=== PATIENT | female | born 1950 | race Caucasian/White ===

== ENCOUNTER → 2020-04-27 11:53 | Outpatient (CLI) | payer MEDICARE, SELFPAY ==
--- NOTE | ~2020-04-27 | XR_ITS ---
EXAMINATION: XR hip BI wo pelvis DATE: 04/27/2020 12:22 INDICATION: Bilateral hip pain. TECHNIQUE: 2 views of right hip and 2 views of left hip were obtained. COMPARISON: Left hip radiographs 01/23/2007 FINDINGS: Bone alignment is normal. No fracture. There is severe right hip osteoarthritis and moderat e left hip osteoarthritis. Osteitis pubis is noted. IMPRESSION: 1. Severe right hip osteoarthritis and moderate left hip osteoarthritis. Reviewed, dictated and finalized at location B. TIZER OPERATOR
== END ==
PROVIDERS: Visit Provider General Practice
DX: M16.0 Bilateral primary osteoarthritis of hip (principal)
CPT/HCPCS: 73521

== ENCOUNTER 2020-05-18 09:58 | Outpatient (CLI) | payer MEDICARE, SELFPAY ==
--- NOTE | ~2020-05-18 | CT_ITS ---
EXAMINATION: CT chest abdomen pelvis wo con DATE: 05/18/2020 10:34 INDICATION: Left breast cancer TECHNIQUE: Computed tomography (CT) of the chest, abdomen, and pelvis was performed without intraveno us contrast. Automated exposure control and iterative reconstruction technique were employed. The dos e-length product was 1281.33 mGy-cm. COMPARISON: PET CT dated 06/05/[address] dated FINDINGS: CHEST CT: Postoperative change of bilateral mastectomies and axillary lymph node dissections. Radiation fibrosi s along the periphery of the anterior left upper lobe. 9 x 3 mm nodule in the right middle lobe which is unchanged since 2007 and almost certainly benign. 3 mm nodule in the right middle lobe and 2 mm n odule in the right lower lobe which are also unchanged. Calcified right middle lobe nodule along with calcified right hilar and mediastinal lymph nodes consistent with old granulomatous disease. No pneu monia, pulmonary edema, pleural effusion or pneumothorax. Mild cardiomegaly. Atherosclerotic coronary artery calcific calcification. Aortic valve calcification. Vascular aorta is normal in caliber. No p athologically enlarged thoracic lymphadenopathy. There are bridging osteophytes at multiple levels in the spine, consistent with diffuse idiopathic skeletal hyperostosis (DISH). ABDOMEN/PELVIS CT: Small amount of pneumobilia likely related to prior cholecystectomy with surgical clips at the gallbl adder fossa. Couple tiny splenic calcific calcification is consistent with old granulomatous disease. Fatty atrophy of the pancreas. Bilateral adrenal glands are normal. Mild right and mild to moderate left renal cortical atrophy. 1.5 cm low-attenuation right renal cyst. Prominent diverticulosis along the descending and sigmoid colon without adjacent inflammatory change to suggest diverticulitis. Smal l bowel and appendix are normal. Small fat-containing umbilical hernia. The uterus is not identified and has likely been surgically resected. Bladder and bilateral adnexa are unremarkable. No free intra peritoneal gas or fluid. No pathologically enlarged abdominal or pelvic lymphadenopathy. There is viry cified atherosclerosis of the aorta and many of the other arteries. Severe bilateral hip osteoarthrit is. Moderate to severe lower lumbar spondylosis. IMPRESSION: 1. Postoperative changes of bilateral mastectomies and bilateral axillary lymph node dissections for reported left breast cancer. No evident metastatic disease in the chest abdomen or pelvis. 2. Diverticulosis. Reviewed, dictated and finalized at location A. NOLOGY SPECIALIST IMPRESSION: 1. Postoperative changes of bilateral mastectomies and bilateral axillary lymph node dissections for reported left breast cancer. No evident metastatic diseas e in the chest abdomen or pelvis. 2. Diverticulosis.
[2020-05-18 10:22] LABS: Estimated Glomerular Filt Rate 26
[2020-05-18 11:20] LABS: Basophils Percent Auto 0.6 % (0.2-1.2); Eosinophils Absolute Auto 0.5 K/mm3 (0-0.3); Eosinophils Percent Auto 8.5 % (0-4.4); Hematocrit 37.7 % (37.0-47.0); Hemoglobin 12.2 g/dL (12.0-15.0); Immature Granulocyte Absolute 0.02 K/mm3 (0.00-0.031); Immature Granulocyte Percent A 0.3 % (0-0.5); Lymphocytes Absolute Auto 2.14 K/mm3 (0.9-3.2); Lymphocytes Percent Auto 33.5 % (18.3-44.2); Mean Corpuscular HGB Conc 32.4 g/dl (32-36); Mean Corpuscular Hemoglobin 29.8 pg (26-34); Mean Corpuscular Volume 92.2 fl (80-100); Mean Platelet Volume 10.7 fl (7.4-10.4); Monocytes Absolute Auto 0.4 K/mm3 (0.1-0.6); Monocytes Percent Auto 6.6 % (2.6-8.5); Neutrophils Absolute Auto 3.2 K/mm3 (1.3-6.7); Neutrophils Percent Auto 50.5 % (45.5-73.1); Platelet Count Result 205 k/mm3 (150-375); Red Blood Count 4.09 M/mm3 (4.2-5.4); Red Cell Distribution Width 13.8 % (11.5-14.5); White Blood Count 6.4 K/mm3 (4.5-10.0)
[2020-05-18 17:18] LABS: Iron 79 ug/dL (37-170)
[2020-05-18 17:19] LABS: Alanine Aminotransferase 13 U/L (4-35); Albumin Level 3.8 g/dL (3.5-5.1); Alkaline Phosphatase 143 U/L (38-126); Anion Gap 8 mmol/L (8-16); Aspartate Amino Transferase 26 U/L (14-36); Bilirubin,Total 0.8 mg/dL (0.2-1.3); Blood Urea Nitrogen 39 mg/dL (7-17); Calcium 9.7 mg/dL (8.4-10.2); Carbon Dioxide 25 mmol/L (22-30); Chloride 107 mmol/L (98-107); Estimated Glomerular Filt Rate 28; Glucose 121 mg/dL (65-105); Potassium 4.8 mmol/L (3.4-5.0); Sodium 140 mmol/L (137-145)
[2020-05-18 17:29] LABS: Percent Iron Saturation 25 % (20-50)
[2020-05-18 18:37] LABS: Folic Acid > 20.0 ng/mL (2.76->20)
[2020-05-21 13:12] LABS: CA 27.29 76 U/mL (<38)
== END 2020-05-18 09:59 | disposition home or self-care (01) ==
PROVIDERS: PCP General Practice; Visit Provider Internal Medicine Hematology & Oncology
DX: C50.412 Malignant neoplasm of upper-outer quadrant of left female breast (principal); Z17.0 Estrogen receptor positive status [ER+]; D64.89 Other specified anemias; I25.10 Atherosclerotic heart disease of native coronary artery without angina pectoris; R92.8 Other abnormal and inconclusive findings on diagnostic imaging of breast; I70.0 Atherosclerosis of aorta; N28.1 Cyst of kidney, acquired; K42.9 Umbilical hernia without obstruction or gangrene; M16.0 Bilateral primary osteoarthritis of hip; M47.816 Spondylosis without myelopathy or radiculopathy, lumbar region; K57.30 Diverticulosis of large intestine without perforation or abscess without bleeding
CPT/HCPCS: 71250; 74176; 80053; 82607; 82728; 82746; 83540; 83550; 85025; 86300

== ENCOUNTER 2020-08-24 08:25 | Outpatient (CLI) | payer MEDICARE, SELFPAY ==
--- NOTE | ~2020-08-24 | NM_ITS ---
EXAMINATION: NM bone scan whole body EXAM DATE: 08/24/2020 11:47 INDICATION: Malignant neoplasm of upper-outer quad of LT breast . TECHNIQUE: Bone scan was performed after injection of 27.2 mCi technetium 99 HDP and planar whole bod y images were obtained. COMPARISON: Chest CT 05/18/2020 FINDINGS: No focal suspicious regions of increased activity or photopenia identified. Slightly decrea sed activity along the anterior aspects of the left ribs compared to the right, could be radiation re lated findings or attenuation from asymmetric, thicker left pectoralis muscle. Bilateral hip and shou lder activity consistent with osteoarthritis. Expected activity within kidneys, some bladder excretio n. IMPRESSION: No suspicion of osseous metastatic disease. Reviewed, dictated and finalized at location B. FITTER
== END 2020-08-24 08:26 | disposition home or self-care (01) ==
PROVIDERS: PCP General Practice; Visit Provider Internal Medicine Hematology & Oncology
DX: C50.412 Malignant neoplasm of upper-outer quadrant of left female breast (principal); Z17.0 Estrogen receptor positive status [ER+]
CPT/HCPCS: 78306; A9561

== ENCOUNTER 2020-11-15 13:36 | Outpatient (CLI) | payer MEDICARE, SELFPAY ==
[2020-11-15 16:43] LABS: Cholesterol 165 mg/dL (0-200); HDL Direct 78 mg/dL; Triglycerides 102 mg/dL (<150)
[2020-11-15 16:54] LABS: LDL Cholesterol Direct 57 mg/dL
[2020-11-15 17:27] LABS: Vitamin D 25 Hydroxy 58.7 ng/mL
[2020-11-15 17:37] LABS: Hepatitis C Virus Antibody Negative (Negative)
[2020-11-15 18:55] LABS: Free T4 Free Thyroxine Reflex 1.72 ng/dL (0.78-2.19)
[2020-11-15 19:51] LABS: Total Triiodothyronine (T3) 0.98 NG/ML (0.97-1.69)
== END 2020-11-15 13:37 | disposition home or self-care (01) ==
LOC: ANHLAB 13:47
PROVIDERS: PCP General Practice; Visit Provider Nurse Practitioner Family
DX: E03.9 Hypothyroidism, unspecified (principal); E78.00 Pure hypercholesterolemia, unspecified; Z11.59 Encounter for screening for other viral diseases; E55.9 Vitamin D deficiency, unspecified
CPT/HCPCS: 36415; 80061; 82306; 84439; 84443; 84480; 86803

== ENCOUNTER 2021-05-17 09:33 | Outpatient (CLI) | payer MEDICARE, SELFPAY ==
[2021-05-17 10:12] LABS: Basophils Percent Auto 0.3 % (0.2-1.2); Eosinophils Absolute Auto 0.4 K/mm3 (0-0.3); Eosinophils Percent Auto 5.4 % (0-4.4); Hematocrit 40.5 % (37.0-47.0); Hemoglobin 12.7 g/dL (12.0-15.0); Immature Granulocyte Absolute 0.02 K/mm3 (0.00-0.031); Immature Granulocyte Percent A 0.3 % (0-0.5); Lymphocytes Absolute Auto 2.56 K/mm3 (0.9-3.2); Lymphocytes Percent Auto 35.5 % (18.3-44.2); Mean Corpuscular HGB Conc 31.4 g/dl (32-36); Mean Corpuscular Hemoglobin 28.3 pg (26-34); Mean Corpuscular Volume 90.4 fl (80-100); Mean Platelet Volume 10.1 fl (7.4-10.4); Monocytes Absolute Auto 0.4 K/mm3 (0.1-0.6); Monocytes Percent Auto 5.1 % (2.6-8.5); Neutrophils Absolute Auto 3.9 K/mm3 (1.3-6.7); Neutrophils Percent Auto 53.4 % (45.5-73.1); Platelet Count Result 243 k/mm3 (150-375); Red Blood Count 4.48 M/mm3 (4.2-5.4); Red Cell Distribution Width 13.4 % (11.5-14.5); White Blood Count 7.2 K/mm3 (4.5-10.0)
[2021-05-17 12:15] LABS: Alanine Aminotransferase 15 U/L (4-35); Albumin Level 4.4 g/dL (3.5-5.1); Alkaline Phosphatase 167 U/L (38-126); Anion Gap 9 mmol/L (8-16); Aspartate Amino Transferase 26 U/L (14-36); Bilirubin,Total 0.6 mg/dL (0.2-1.3); Blood Urea Nitrogen 39 mg/dL (7-17); Calcium 9.8 mg/dL (8.4-10.2); Carbon Dioxide 22 mmol/L (22-30); Chloride 107 mmol/L (98-107); Estimated Glomerular Filt Rate 28; Glucose 122 mg/dL (65-110); Potassium 4.2 mmol/L (3.4-5.0); Sodium 138 mmol/L (137-145)
[2021-05-17 12:16] LABS: Magnesium 1.7 mg/dL (1.6-2.3); Phosphorus 4.7 mg/dL (2.5-4.5)
[2021-05-17 12:28] LABS: Creatinine Urine 106.6 mg/dL; Total Protein Urine Random 142 mg/dL; Ur Ttl Prot Creatinine Ratio 1.33 mg/mg (0-0.20)
[2021-05-17 15:43] LABS: MALB Creatinine Ratio 612.2 mg/g (0-30); Microalbumin Urine Random 652.6 mg/L (0-16.7)
[2021-05-19 05:28] LABS: CA 15-3 113 U/mL (<32)
[2021-05-31 12:07] LABS: Gliadin AB, IgG <1.0 U/mL (<15.0); Reticulin IgA Negative (Negative); TTG IGA AB <1.0 U/mL (<15.0)
== END 2021-05-17 09:34 | disposition home or self-care (01) ==
LOC: ANHLAB 09:35
PROVIDERS: Internal Medicine Nephrology; Nurse Practitioner Family; Visit Provider Internal Medicine Hematology & Oncology
DX: C50.412 Malignant neoplasm of upper-outer quadrant of left female breast (principal); I12.9 Hypertensive chronic kidney disease with stage 1 through stage 4 chronic kidney disease, or unspecified chronic kidney disease; Z17.0 Estrogen receptor positive status [ER+]; G47.33 Obstructive sleep apnea (adult) (pediatric); E11.22 Type 2 diabetes mellitus with diabetic chronic kidney disease; E03.9 Hypothyroidism, unspecified; E78.00 Pure hypercholesterolemia, unspecified; J45.20 Mild intermittent asthma, uncomplicated; K52.9 Noninfective gastroenteritis and colitis, unspecified; T78.40XA Allergy, unspecified, initial encounter
CPT/HCPCS: 36415; 80053; 82043; 82570; 82607; 83516; 83735; 84100; 84156; 85025; 86003; 86255; 86300

== ENCOUNTER → 2021-05-18 14:48 | Outpatient (CLI) | payer MEDICARE, SELFPAY ==
--- NOTE | ~2021-05-18 | US_ITS ---
EXAMINATION: US soft tissue groin RT DATE: 05/18/2021 15:04 INDICATION: Right groin pain. TECHNIQUE: Multiple grayscale and Doppler ultrasound images of the right inguinal region were obtaine d. COMPARISON: CT abdomen and pelvis 05/18/2020 FINDINGS: There is no abnormal mass or lymphadenopathy in the right inguinal region. No hernia. IMPRESSION: 1. No etiology for the patient's symptoms. Reviewed, dictated and finalized at location A. K TEACHER
== END ==
PROVIDERS: PCP Nurse Practitioner Family; Visit Provider Nurse Practitioner Family
DX: R10.31 Right lower quadrant pain (principal); R29.898 Other symptoms and signs involving the musculoskeletal system; Z98.890 Other specified postprocedural states; Z87.19 Personal history of other diseases of the digestive system
CPT/HCPCS: 76882

== ENCOUNTER 2021-06-05 10:40 | Outpatient (CLI) | payer MEDICARE, SELFPAY ==
--- NOTE | ~2021-06-05 | NM_ITS ---
EXAMINATION: NM bone scan whole body DATE: 06/05/2021 13:28 INDICATION: Malignant neoplasm of the upper outer quadrant of the left breast TECHNIQUE: 22.3 mCi Tc-99m HDP was administered intravenously. Delayed whole-body scintigrams were o btained. COMPARISON: Bone scan dated 08/24/[address] chest, abdomen and pelvis dated 06/05/2021 FINDINGS: Again seen scattered relatively symmetric joint centered and likely degenerative increased uptake at the bilateral shoulders, hands and wrists, knees, feet and ankles. There is asymmetric. No significan t change in asymmetric likely degenerative increased uptake at the right sternoclavicular articulatio n with corresponding severe osteoarthritis evident on the prior CT. There is asymmetric decreased act ivity at the left kidney corresponding to moderate left-sided and mild right-sided renal atrophy on p rior CT. No other suspicious foci of abnormal bone or soft tissue activity to suggest metastatic dise ase. IMPRESSION: 1. Similar pattern of scattered likely degenerative joint centered uptake. No other lesions suspiciou s for metastatic disease. Reviewed, dictated and finalized at location H. STRY PROFESSOR IMPRESSION: 1. Similar pattern of scattered likely degenerative joint centered uptake. No o ther lesions suspicious for metastatic disease.
--- NOTE | ~2021-06-05 | CT_ITS ---
EXAMINATION: CT chest abdomen pelvis wo con DATE: 06/05/2021 11:17 INDICATION: Follow-up abnormal laboratory tests. 18 urination for breast cancer. TECHNIQUE: Computed tomography (CT) of the chest, abdomen, and pelvis was performed without intraveno us contrast. Automated exposure control and iterative reconstruction technique were employed. Exam do se: 1066.14 mGy-cm total exam DLP. COMPARISON: 05/18/2020 CT chest abdomen pelvis FINDINGS: CHEST CT: Status post bilateral mastectomy and axillary node dissection. Calcified pulmonary granulomas are noted in the middle and right lower lobes. No interval new or enla rging pulmonary mass. No pulmonary infiltrate or consolidation. Again noted is postoperative radiation change at the anterior aspect of the left upper lobe. No hilar or mediastinal mass lesion or lymphadenopathy or axillary lymphadenopathy. Aortic calcification but normal caliber of the thoracic aorta. Normal heart size. Coronary artery viry cification. No pericardial or pleural effusion. Prominent degenerative disc disease of the lower cervical spine. Diffuse idiopathic skeletal hyperost osis of the thoracic spine. ABDOMEN/PELVIS CT: Pneumobilia is again noted. Status post cholecystectomy. No hepatic, splenic, pancreatic, adrenal space-occupying mass lesion. 1.5 cm exophytic lower pole right renal cyst. Bilateral renal atrophy, left greater than right. No ur inary tract calculus or hydroureteronephrosis. There is atherosclerotic calcification of the abdominal aorta. Particular prominent calcification is noted at the origins of both renal arteries. No abdominal aortic aneurysm. No intraperitoneal or retr operitoneal or pelvic mass lesion or adenopathy or ascites is evident. There are numerous diverticula of the left colon, particularly in the sigmoid region. No CT evidence of diverticulitis. No bowel obstruction, bowel wall thickening, pneumatosis or intraperitoneal free a ir. The urinary bladder is unremarkable. Status post hysterectomy. Fat-containing umbilical hernia. Multilevel degenerative disease of lumbar spine, especially at L3-4, L4-5 and particularly L5-S1. Prominent bilateral hip osteoarthritis. Diffuse osteopenia. No suspicious osteolytic or osteoblastic lesions are noted. IMPRESSION: Status post bilateral mastectomy and axillary node dissection Status post cholecystectomy Status post hysterectomy Diverticulosis of the left colon; no CT evidence of diverticulitis No significant change since 05/18/2020 Reviewed, dictated and finalized at Location A. Reviewed, dictated and finalized at location B. E STAFF INDUSTRIAL
== END 2021-06-05 10:41 | disposition home or self-care (01) ==
LOC: ANHIMG 10:44
PROVIDERS: PCP Nurse Practitioner Family; Visit Provider Internal Medicine Hematology & Oncology
DX: C50.412 Malignant neoplasm of upper-outer quadrant of left female breast (principal); M48.14 Ankylosing hyperostosis [Forestier], thoracic region; I25.10 Atherosclerotic heart disease of native coronary artery without angina pectoris; Z90.49 Acquired absence of other specified parts of digestive tract; Z90.710 Acquired absence of both cervix and uterus; Z90.13 Acquired absence of bilateral breasts and nipples; K57.30 Diverticulosis of large intestine without perforation or abscess without bleeding; M19.90 Unspecified osteoarthritis, unspecified site; N26.1 Atrophy of kidney (terminal); N28.1 Cyst of kidney, acquired; K42.9 Umbilical hernia without obstruction or gangrene; M16.0 Bilateral primary osteoarthritis of hip; M47.816 Spondylosis without myelopathy or radiculopathy, lumbar region
CPT/HCPCS: 71250; 74176; 78306; A9561

== ENCOUNTER 2021-11-28 12:11 | Outpatient (CLI) | payer MEDICARE, SELFPAY ==
[2021-11-28 13:00] LABS: Basophils Percent Auto 0.3 % (0.2-1.2); Eosinophils Absolute Auto 0.4 K/mm3 (0-0.3); Eosinophils Percent Auto 6.6 % (0-4.4); Hemoglobin 10.7 g/dL (12.0-15.0); Immature Granulocyte Absolute 0.01 K/mm3 (0.00-0.031); Immature Granulocyte Percent A 0.2 % (0-0.5); Lymphocytes Percent Auto 36.1 % (18.3-44.2); Mean Corpuscular HGB Conc 29.7 g/dl (32-36); Mean Corpuscular Hemoglobin 26.9 pg (26-34); Mean Corpuscular Volume 90.5 fl (80-100); Mean Platelet Volume 10.1 fl (7.4-10.4); Monocytes Absolute Auto 0.3 K/mm3 (0.1-0.6); Monocytes Percent Auto 5.1 % (2.6-8.5); Neutrophils Absolute Auto 3.2 K/mm3 (1.3-6.7); Neutrophils Percent Auto 51.7 % (45.5-73.1); Platelet Count Result 267 k/mm3 (150-375); Red Blood Count 3.98 M/mm3 (4.2-5.4); Red Cell Distribution Width 13.5 % (11.5-14.5); White Blood Count 6.1 K/mm3 (4.5-10.0)
[2021-11-28 13:10] LABS: Hypochromasia 1+ (NORMAL); Platelet Estimate Adequate (Adequate)
[2021-11-28 16:18] LABS: Alanine Aminotransferase 13 U/L (6-35); Albumin Level 4.3 g/dL (3.5-5.1); Alkaline Phosphatase 165 U/L (38-126); Anion Gap 9 mmol/L (8-16); Aspartate Amino Transferase 25 U/L (14-36); Bilirubin,Total 0.5 mg/dL (0.2-1.3); Blood Urea Nitrogen 37 mg/dL (7-17); Calcium 9.2 mg/dL (8.4-10.2); Carbon Dioxide 19 mmol/L (22-30); Chloride 110 mmol/L (98-107); Estimated Glomerular Filt Rate 15; Glucose 108 mg/dL (65-110); Potassium 5.5 mmol/L (3.4-5.0); Sodium 138 mmol/L (137-145)
[2021-11-28 16:25] LABS: LDL Cholesterol Direct 48 mg/dL
[2021-11-28 16:32] LABS: Cholesterol 148 mg/dL (0-200); HDL Direct 56 mg/dL; Phosphorus 4.5 mg/dL (2.5-4.5); Triglycerides 135 mg/dL (<150); Vitamin D 25 Hydroxy 82.7 ng/mL
[2021-11-28 16:42] LABS: Appearance Urine Clear (Clear); Bilirubin Urine Negative (Negative); Blood Urine Negative (Negative); Color Urine Yellow (Yellow); Glucose Urine UA Negative (Negative); Ketones Urine Negative (Negative); Leukocyte Esterase Ur Trace LEU/UL (NEGATIVE); Nitrate Urine Negative (Negative); Protein Urine 1+ mg/dL (Negative); Urobilinogen Urine 0.2 mg/dL (<2.0); pH Urine 5.5 (5.0-9.0)
[2021-11-28 16:45] LABS: Carcinoembryonic Antigen 23.5 ng/mL (0.0-3.0)
[2021-11-28 16:46] LABS: Bacteria Urine Trace /hpf; Mucus Urine Rare /lpf; RBC Urine 0-2 /hpf (0-2); Squamous Epithelial Cell Urine Rare /hpf (Few)
[2021-11-28 16:48] LABS: Add Urine Microscopic? YES
[2021-11-28 16:51] LABS: Creatinine Urine 123.1 mg/dL; Total Protein Urine Random 57 mg/dL; Ur Ttl Prot Creatinine Ratio 0.46 mg/mg (0-0.20)
[2021-11-28 17:13] LABS: MALB Creatinine Ratio 246.2 mg/g (0-30); Microalbumin Urine Random 303.1 mg/L (0-16.7)
[2021-11-29 00:06] LABS: Hemoglobin A1C 5.7 % (<5.7)
[2021-12-01 05:33] LABS: CA 15-3 161 U/mL (<32)
== END 2021-11-28 12:12 | disposition home or self-care (01) ==
LOC: ANHLAB 12:14
PROVIDERS: PCP Nurse Practitioner Family; Referring Provider Internal Medicine Nephrology; Visit Provider Internal Medicine Hematology & Oncology
DX: N18.4 Chronic kidney disease, stage 4 (severe) (principal); N04.1 Nephrotic syndrome with focal and segmental glomerular lesions; G47.33 Obstructive sleep apnea (adult) (pediatric); I10 Essential (primary) hypertension; E11.22 Type 2 diabetes mellitus with diabetic chronic kidney disease; E78.00 Pure hypercholesterolemia, unspecified; E03.9 Hypothyroidism, unspecified; J45.20 Mild intermittent asthma, uncomplicated; C50.412 Malignant neoplasm of upper-outer quadrant of left female breast; Z17.0 Estrogen receptor positive status [ER+]
CPT/HCPCS: 36415; 80053; 80061; 81001; 82043; 82306; 82378; 82570; 83036; 83735; 84100; 84156; 85025; 86300

== ENCOUNTER 2021-12-26 10:34 | Outpatient (CLI) | payer MEDICARE, SELFPAY ==
--- NOTE | ~2021-12-26 | PE_ITS ---
EXAMINATION: PET skull to mid thigh DATE: 12/26/2021 12:21 INDICATION: Malignant neoplasm of the upper outer quadrant of the left breast TECHNIQUE: Blood glucose level was 122 mg/dL. 10.938 mCi of 18-fluorodeoxyglucose (18-FDG) was admini stered i.v. Low dose computed tomography (CT) images were acquired from the base of the brain to the proximal thighs for attenuation correction and anatomic localization. Positron emission tomography (P ET) images were acquired in the same distribution beginning 58 minutes after injection. Images includ ing fused PET/CT images were reconstructed in axial, coronal, and sagittal planes. Automated exposure control technique was employed. The dose-length product was 847.95mGy-cm. COMPARISON: CT chest, abdomen and pelvis dated 06/05/2021 FINDINGS: Head/neck: There is symmetric increased activity in the oral cavity, palatine tonsils, parotid glands, submandi bular glands, laryngeal muscles and ocular muscles without CT correlate, likely physiologic. Approxim ately 12 x 9 mm nodule along the deep inferior right thyroid lobe with increased FDG uptake with maxi mal SUV of 5.3. No pathologically enlarged cervical lymphadenopathy or other suspicious foci of incre ased FDG uptake in the visualized head or neck. Chest: Postoperative changes of bilateral mastectomies and surgical clips the left axilla consistent with pr ior axillary lymph node dissection. Calcified right middle lobe nodule and calcified calcified medias tinal and right hilar lymph nodes consistent with old granulomatous disease. No other suspicious pulm onary nodules, pneumonia or other pulmonary infiltrates. No pleural effusion. Heart size is normal. A therosclerotic coronary artery calcification. Aortic valve calcific location. No pericardial effusion . Thoracic aorta is normal in caliber. No pathologically enlarged or FDG avid thoracic lymphadenopath y. No suspicious FDG avid lesions in the thorax. Abdomen/pelvis/proximal thighs: Physiologic renal accumulation and excretion of FDG activity in the kidneys, bladder and along portio ns of ureters. There is asymmetric relative increased activity at the right kidney relative to the le ft with mild right-sided and moderate left-sided renal cortical atrophy. 1.8 cm cyst at the lower cm e of the right kidney. Cholecystectomy clips the gallbladder fossa. Normal degree and heterogenous pa ttern of increased uptake throughout the liver without radiologic correlate or dominant FDG avid lesi on. Diffuse fatty atrophy of the pancreas. Spleen and bilateral adrenal glands are normal. Mild to mo derate uptake scattered throughout the bowels without radiologic correlate, also likely physiologic. Moderate sigmoid predominant diverticulosis without adjacent inflammatory change to suggest diverticu litis. Normal appendix. Small fat-containing umbilical hernia. The uterus is not identified and has l ikely been surgically resected. No other abnormal foci of increased FDG uptake or pathologically enla rged lymphadenopathy in the abdomen, pelvis or proximal thighs. Musculoskeletal: Moderate diffuse increased likely synovial uptake surrounding a right total hip arthroplasty which is new since 06/05/2021. Severe left hip osteoarthritis with additional mild surrounding synovial uptak e. Additional diffuse mild synovial uptake at the bilateral glenohumeral joints were there is moderat e osteoarthritis. Likely physiologic muscular uptake in the bilateral hands and forearms. No suspicio us lytic, blastic or FDG avid bone lesions. IMPRESSION: 1. Nonspecific moderate increased FDG uptake associated with a 12 x 9 mm right thyroid nodule. Consid er thyroid ultrasound for risk stratification. 2. No other lesions suspicious for malignancy or metastatic disease. Reviewed, dictated and finalized at location B. Electronically signed by Delroy
[2021-12-26 10:57] LABS: Glucose Point of Care 122 mg/dl (65-105)
== END 2021-12-26 10:35 | disposition home or self-care (01) ==
PROVIDERS: PCP Nurse Practitioner Family; Visit Provider Internal Medicine Hematology & Oncology
DX: C50.412 Malignant neoplasm of upper-outer quadrant of left female breast (principal); E04.1 Nontoxic single thyroid nodule
CPT/HCPCS: 78815; A9552

== ENCOUNTER 2022-04-26 12:07 | Outpatient (CLI) | payer MEDICARE, SELFPAY ==
[2022-04-26 17:17] LABS: Hemoglobin A1C 5.5 % (<5.7)
[2022-04-26 17:31] LABS: Thyroid Stimulating Hormone 0.501 uIU/mL (0.465-4.680)
[2022-04-26 17:33] LABS: Free T4 Free Thyroxine 1.59 ng/mL (0.78-2.19)
[2022-05-02 16:21] LABS: CA 15-3 321 U/mL (<32)
[2022-05-03 20:47] LABS: Triiodothyronine T3 Free 2.4 pg/mL (2.3-4.2)
== END 2022-04-26 12:08 | disposition home or self-care (01) ==
LOC: ANHLAB 12:09
PROVIDERS: PCP Nurse Practitioner Family; Visit Provider Internal Medicine Hematology & Oncology
DX: C50.412 Malignant neoplasm of upper-outer quadrant of left female breast (principal); Z17.0 Estrogen receptor positive status [ER+]; E03.9 Hypothyroidism, unspecified; E11.65 Type 2 diabetes mellitus with hyperglycemia
CPT/HCPCS: 36415; 83036; 84439; 84443; 84481; 86300

== ENCOUNTER 2022-06-01 07:24 | Outpatient (CLI) | payer MEDICARE, SELFPAY ==
--- NOTE | ~2022-06-01 | NM_ITS ---
Whole-body bone scan: History: Malignant neoplasm breast. Radiopharmaceutical: 25.9 mCi of technetium 99m MDP was administered intravenously. COMPARISON: Prior bone scan dated 06/05/2021 Procedure: Three hour delayed anterior and posterior whole-body bone scan was performed. Findings: There are somewhat linearly oriented focal areas of increased abnormal uptake in the right ribs, and laterally in the left ribs, with distribution suggestive of rib fractures. There is probable degenerative uptake at the bilateral shoulders, bilateral wrists (right worse than left), left hip joint, bilateral knees, and feet/ankles. Relative photopenia at the right hip joint i s compatible with underlying prosthesis. Impression: Multiple areas of new abnormal uptake in the bilateral ribs, with distribution most suggestive of rib fractures. Metastatic disease is not completely excluded, but is less likely based on the linear dis tribution. Consider radiographic correlation is indicated. Additional degenerative uptake at multiple joints, as detailed above, similar to prior exam. Reviewed, dictated and finalized at location [] CAL DISPENSER Impression: Multiple areas of new abnormal uptake in the bilateral ribs, with distribution most suggestive of rib fractures. Metastatic disease is not completely excluded , but is less likely based on the linear distribution. Consider radiographic co rrelation is indicated. Additional degenerative uptake at multiple joints, as detailed above, similar t o prior exam.
== END 2022-06-01 07:25 | disposition home or self-care (01) ==
PROVIDERS: PCP Nurse Practitioner Family; Visit Provider Internal Medicine Hematology & Oncology
DX: C50.412 Malignant neoplasm of upper-outer quadrant of left female breast (principal); Z17.0 Estrogen receptor positive status [ER+]; R93.7 Abnormal findings on diagnostic imaging of other parts of musculoskeletal system
CPT/HCPCS: 78306; A9561

== ENCOUNTER 2022-06-05 11:27 | Outpatient (CLI) | payer MEDICARE, SELFPAY ==
--- NOTE | ~2022-06-05 | PE_ITS ---
EXAMINATION: PET skull to mid thigh DATE: 06/05/2022 13:32 INDICATION: Malignant neoplasm of the upper outer quadrant of the left breast TECHNIQUE: Blood glucose level was 99 mg/dL. 10.896 mCi of 18-fluorodeoxyglucose (18-FDG) was adminis tered i.v. Low dose computed tomography (CT) images were acquired from the base of the brain to the p roximal thighs for attenuation correction and anatomic localization. Positron emission tomography (PE T) images were acquired in the same distribution beginning 53 minutes after injection. Images includi ng fused PET/CT images were reconstructed in axial, coronal, and sagittal planes. Automated exposure control technique was employed. The dose-length product was 595.55mGy-cm. COMPARISON: 12/26/2021 FINDINGS: Head/neck: There is symmetric increased activity in the oral cavity, palatine tonsils, parotid glands, submandi bular glands, laryngeal muscles and ocular muscles without CT correlate, likely physiologic. The righ t thyroid lobe is both asymmetrically enlarged relative to the left thyroid lobe but also with modera te increased FDG uptake with maximal SUV of 7.5. No pathologically enlarged cervical lymphadenopathy or suspicious foci of increased FDG uptake in the visualized head or neck. Chest: Calcite right middle lobe nodule and calcified right hilar lymph nodes consistent with old granulomat ous disease. No suspicious pulmonary nodules, pneumonia, pulmonary edema or pleural effusion. Cardiom egaly with atherosclerotic coronary artery calcific location. Aortic valve calcific lesion. Thoracic aorta is normal in caliber. Postoperative change of prior bilateral mastectomies with surgical clips in the left axilla consistent with prior left axillary lymph node dissection. No pathologically enlar ged or FDG avid thoracic lymphadenopathy. Abdomen/pelvis/proximal thighs: Physiologic renal accumulation and excretion of FDG activity in the kidneys, bladder and along portio ns of ureters. Again seen is asymmetric left-sided predominant mild renal atrophy. 1.7 cm cyst at the lower pole of the right kidney. Normal degree and heterogenous pattern of increased uptake throughou t the liver without radiologic correlate or dominant FDG avid lesion. Chronic pneumobilia likely rela yulisa to prior sphincterotomy. Cholecystectomy clips in the gallbladder fossa. The pancreas, spleen an d bilateral adrenal glands are normal. There is moderate colonic diverticulosis with a sigmoid predom inance. There is no adjacent inflammatory change to suggest diverticulitis. Mild uptake scattered th roughout the bowels without radiologic correlate, also likely physiologic. The uterus is not identifi ed and has likely been surgically resected. No other abnormal foci of increased FDG uptake or pathol ogically enlarged lymphadenopathy in the abdomen, pelvis or proximal thighs. Small fat-containing umb ilical hernia. Musculoskeletal: There is mild uptake associated with several healing rib fractures at the lateral left lower ribs and anterolateral right lower ribs. Persistent diffuse synovial uptake associated with mild to moderate osteoarthritis at the bilateral glenohumeral and acromioclavicular joints and with severe osteoarthri tis at the left hip joint . Additional unchanged mild synovial uptake along the periphery of a right total hip arthroplasty. No suspicious lytic, blastic or FDG avid bone lesions. IMPRESSION: 1. Increasing asymmetric FDG uptake at the right thyroid lobe which appears enlarged relative the lef t thyroid lobe. Would recommend thyroid ultrasound for risk stratification. 2. Status post bilateral mastectomies and left axillary lymph node dissection for reported prior left breast cancer. No FDG avid lesions suspicious for residual, locally recurrent or metastatic disease. 3. A few healing bilateral rib fractures new since the prior study.
[2022-06-05 12:15] LABS: Glucose Point of Care 99 mg/dl (65-105)
== END 2022-06-05 11:28 | disposition home or self-care (01) ==
PROVIDERS: PCP Nurse Practitioner Family; Visit Provider Internal Medicine Hematology & Oncology
DX: C50.412 Malignant neoplasm of upper-outer quadrant of left female breast (principal); Z17.0 Estrogen receptor positive status [ER+]; E07.9 Disorder of thyroid, unspecified; S22.43XD Multiple fractures of ribs, bilateral, subsequent encounter for fracture with routine healing
CPT/HCPCS: 78815; A9552

== ENCOUNTER 2022-06-28 08:25 | Outpatient (CLI) | payer MEDICARE, SELFPAY ==
--- NOTE | ~2022-06-28 | XR_ITS ---
EXAMINATION: [id number]_[id number] INDICATION: Closed fractures of multiple bilateral ribs TECHNIQUE: A frontal view of the chest and 3 views of the bilateral ribs were obtained. COMPARISON: PET/CT, 06/05/2022 FINDINGS: The lungs are free of acute opacities. No pleural effusion or pneumothorax. There are chapin es of bilateral mastectomy and lymph node dissection. No pleural effusion or pneumothorax. The cardio mediastinal silhouette is normal. There are healing anterolateral fractures of the left fifth through eighth ribs. The right-sided rib fractures described on PET/CT are not definitely identified. IMPRESSION: 1. Healing left rib fractures. No acute cardiopulmonary abnormality. Reviewed, dictated and finalized at location L. ERECTOR
--- NOTE | ~2022-06-28 | US_ITS ---
EXAMINATION: US soft tissue head and neck DATE: 06/28/2022 14:00 INDICATION: Enlarged thyroid. TECHNIQUE: Multiple ultrasound images of the thyroid were obtained. COMPARISON: Ultrasound 06/26/2019 FINDINGS: The right thyroid lobe measures 4.2 x 1.5 x 1.4 cm. The left thyroid lobe measures 3.3 x 1.2 x 1.1 c m. The thyroid demonstrates heterogeneous echogenicity. Vascularity is normal. No discrete nodule. IMPRESSION: 1. Heterogeneous thyroid, likely chronic lymphocytic (Chary) thyroiditis as demonstrated at biops y on 06/26/2019. Reviewed, dictated and finalized at location A. LEVELER IMPRESSION: 1. Heterogeneous thyroid, likely chronic lymphocytic (Chary) thyroiditis as demonstrated at biopsy on 06/26/2019.
[2022-06-28 09:48] LABS: Hematocrit 35.8 % (37.0-47.0); Hemoglobin 11.1 g/dL (12.0-15.0); Mean Corpuscular Hemoglobin 29.4 pg (26-34); Mean Corpuscular Volume 94.7 fl (80-100); Mean Platelet Volume 10.6 fl (7.4-10.4); Platelet Count Result 228 k/mm3 (150-375); Red Blood Count 3.78 M/mm3 (4.2-5.4); Red Cell Distribution Width 14.6 % (11.5-14.5); White Blood Count 5.5 K/mm3 (4.5-10.0)
[2022-06-28 09:59] LABS: Albumin Level 3.6 g/dL (3.5-5.1); Anion Gap 3 mmol/L (8-16); Blood Urea Nitrogen 38 mg/dL (7-17); Calcium 8.8 mg/dL (8.4-10.2); Carbon Dioxide 25 mmol/L (22-30); Chloride 110 mmol/L (98-107); Estimated Glomerular Filt Rate 28; Glucose 108 mg/dL (65-110); Magnesium 1.8 mg/dL (1.6-2.3); Potassium 4.9 mmol/L (3.4-5.0); Sodium 138 mmol/L (137-145)
[2022-06-28 10:01] LABS: Hemoglobin A1C 5.2 % (<5.7)
[2022-06-28 10:10] LABS: Parathyroid Intact 170.2 pg/mL (7.5-53.5)
[2022-06-28 10:57] LABS: Vitamin D 25 Hydroxy 45.6 ng/mL
[2022-06-28 11:18] LABS: Microalbumin Urine Random > 1140.0 mg/L (0-16.7)
[2022-06-28 11:52] LABS: Total Protein Urine Random > 600 mg/dL
== END 2022-06-28 08:26 | disposition home or self-care (01) ==
PROVIDERS: PCP Nurse Practitioner Family; Visit Provider Internal Medicine Hematology & Oncology
DX: N18.4 Chronic kidney disease, stage 4 (severe) (principal); N04.1 Nephrotic syndrome with focal and segmental glomerular lesions; G47.33 Obstructive sleep apnea (adult) (pediatric); I10 Essential (primary) hypertension; S22.43XD Multiple fractures of ribs, bilateral, subsequent encounter for fracture with routine healing; E78.00 Pure hypercholesterolemia, unspecified; E03.9 Hypothyroidism, unspecified; E11.9 Type 2 diabetes mellitus without complications; F32.A Depression, unspecified; J45.20 Mild intermittent asthma, uncomplicated; Z85.3 Personal history of malignant neoplasm of breast; X58.XXXD Exposure to other specified factors, subsequent encounter
CPT/HCPCS: 36415; 71111; 76536; 80069; 82043; 82306; 82570; 83036; 83735; 83970; 84156; 85027